=== PATIENT | male | born 1965 | race Caucasian/White ===

== ENCOUNTER 2018-10-03 10:21 | Emergency (ER) | payer BC, MEDICARE, MEDICAID ==
[2018-10-03 10:34] VITALS: BP 141/91
[2018-10-03] MEDS ORDERED: Benzoin COMPOUND swab* 1 applicator pak TOPICAL ONE (11:56)
[2018-10-03] MEDS ORDERED: Benzoin Compound STICK TOPICAL ONE (12:01)
--- NOTE | 2018-10-04 22:48 | UC ---
Laceration HPI - HPI Summary HPI Summary: Note: Document created and completed October 04, 2018 Zhao Mistry MD CHIEF COMPLAINT and HPI: This is a 53 with a laceration to his left index finger that is more than 8 hours old. Patient states that he caught finger between a wagon and a wall. He has a 2.5 cm laceratioin on the volar aspect of his left index finger, proximal digit. It was bleeding until he put a bandaid on it. Pain is described as minimal. He has no complaints of sensation or motor limitation or loss of function. Patient is at [facility] with his mother. NURSES NOTE REVIEWED. VITAL SIGNS REVIEWED. 141/91=BP. On NO antihypertensive medication. VISIT LIST and MEDICAL PROBLEM LIST REVIEWED. CURRENT MEDICATIONS and ALLERGIES REVIEWED. INFORMATION RELEVANT TO CURRENT COMPLAINT: By hx has epilepsy. On Tegretol. Hypertension medication: None. - History Of Current Complaint Chief Complaint: UCLaceration Stated Complaint: LT FINGER LAC Time Seen by Provider: 10/03/18 10:44 Pain Intensity: 1 Pain Scale Used: Adult Non Verbal - Allergies/Home Medications Allergies/Adverse Reactions: Allergies Allergy/AdvReac Type Severity Reaction Status Date / Time No Known Allergies Allergy Verified 10/03/18 10:34 Home Medications: Home Medications carBAMazepine CHEW TAB(*) [Tegretol CHEW TAB(*)] 400 mg PO BID 10/03/18 [ History Confirmed 10/03/18] PMH/Surg Hx/FS Hx/Imm Hx Previously Healthy: Yes Neurological History: Seizures - Surgical History Surgical History: None - Family History Known Family History: Positive: None - Social History Occupation: Employed Full-time - long employment with [employer] Alcohol Use: None Substance Use Type: None Smoking Status (MU): Never Smoked Tobacco Have You Smoked in the Last Year: No Review of Systems All Other Systems Reviewed And Are Negative: Yes Constitutional: Positive: Negative. Negative: Fever Respiratory: Positive: Negative. Negative: Shortness Of Breath Cardiovascular: Positive: Negative. Negative: Palpitations Gastrointestinal: Positive: Negative Motor: Positive: Negative. Negative: Decreased ROM, Weakness Neurovascular: Positive: Negative. Negative: Decreased Sensation Is Patient Immunocompromised?: No Physical Exam Triage Information Reviewed: Yes Appearance: Well-Appearing Vital Signs: Initial Vital Signs Temp 98 F 10/03/18 10:31 Pulse 69 10/03/18 10:31 Resp 18 10/03/18 10:31 BP 141/91 10/03/18 10:31 Pulse Ox 100 10/03/18 10:31 Vital Signs Reviewed: Yes Eye Exam: Normal ENT Exam: Normal Dental Exam: Normal Neck exam: Normal Neck: Positive: 1 Respiratory Exam: Normal Cardiovascular Exam: Normal Abdominal Exam: Normal Musculoskeletal Exam: Normal Musculoskeletal: Positive: Strength Intact, ROM Intact, No Edema, Other: - laceration proximal digit of left index, volar; 2.5 cm. Negative: ROM Limited @ , Edema @ Neurological Exam: Normal Psychological Exam: Normal Skin Exam: Normal Procedures - Laceration/Wound Repair 1 Location: Other - left index finger, proximal digit volar aspect; 2.5 cm laceration; well approximated Description: Linear Betadine Prep?: Yes Laceration/Wound Explored: clean Closure: SteriStrips - choice not to close with sutures because of time of original injury; CMS intact; good hemostasis and approximation post procedure Layer Closure?: No Sterile Dressing Applied?: No Laceration Course/Dx - Course/Dx Course Of Treatment: This is a 53 with a laceration to his left index finger that is more than 8 hours old. Patient states that he caught finger between a wagon and a wall. He has a 2.5 cm laceratioin on the volar aspect of his left index finger, proximal digit. It was bleeding until he put a bandaid on it. Pain is described as minimal. He has no complaints of sensation or motor limitation or loss of function. Patient is at [facility] with his mother. x ray: negative for fx or foreign body; read by radiologist. Procedure: wound cleaned, benzoin and steri strips; good approximation and hemostasis; procedure by MD; dressing applied with splint by nurse. Patient will follow up with PMD. MEDICATIONS REVIEWED. HYPERTENSION STATUS AND RECOMMENDATION FOR FOLLOWUP REVIEWED WITH PATIENT. - Differential Dx - Laceration/Wound Differental Diagnoses: Abrasion, Cellulitis, Laceration, Tenosynovitis - Diagnosis Provider Diagnosis: Finger laceration Discharge - Sign-Out/Discharge Documenting (check all that apply): Patient Departure All imaging exams completed and their final reports reviewed: Yes - Discharge Plan Condition: Stable Disposition: HOME Patient Education Materials: Laceration Without Closure (ED) Referrals: No Primary Care Phys,NOPCP [Primary Care Provider] - Additional Instructions: WE DISCUSSED: PLEASE SEEK CARE AT THE EMERGENCY DEPARTMENT IF SYMPTOMS WORSEN OR IF NEW SYMPTOMS DEVELOP. FOLLOW UP WITH YOUR PRIMARY CARE PHYSICIAN IF CONDITION CONTINUES BEYOND 3 DAYS WITHOUT IMPROVEMENT. We are open from 7 a.m. to 10 p.m. Call us with any questions or concerns. YOUR DIAGNOSIS IS: LACERATION MORE THAN 12 HOURS OLD TO THE LEFT INDEX FINGER. YOUR PRESCRIPTION RECOMMENDATION IS: NONE. OTHER INSTRUCTIONS: YOUR WOUND HAS BEEN CLOSED WITH STERI-STRIPS. Use a splint to protect it when your work. This should heal up over the next 10-14 days. If there is any sign of infection. Make sure to call us or return here or to her doctor for recheck. This means if it gets red, hot, swollen, warm or tender. Use splint for at least the next week. If steri strips fall off, use a band aid to bring wound edges together. Hypertension Discharge Instructions: Your blood pressure reading today was 141/91, indicating HYPERTENSION. Follow- up with your primary care provider within 4 weeks for blood pressure check and appropriate recommendations and treatment, as needed. For pain: Ibuprofen (Motrin and other brand names) 400-600mg PLUS acetaminophen (Tylenol and other brand names) 500mg - 1000mg every 8 hours. Maximum is 3 doses a day. If this dosage is required for more than 5 days, you should re-check with your doctor. The combination of these two over-the- counter medications can be more effective than each one taken alone. Please check with the pharmacist if you have questions about your allergies to these medications. - Billing Disposition and Condition Condition: STABLE Disposition: Home
== END 2018-10-03 12:25 | disposition home or self-care (01) ==
LOC: UCEAST 10:21
DX: S61.211A Laceration without foreign body of left index finger without damage to nail, initial encounter (principal); W23.0XXA Caught, crushed, jammed, or pinched between moving objects, initial encounter; Y92.9 Unspecified place or not applicable; G40.909 Epilepsy, unspecified, not intractable, without status epilepticus
CPT/HCPCS: 12001; 99212; 99213; G0463

== ENCOUNTER 2019-07-28 10:53 | Emergency (ER) | payer BC, MEDICARE, MEDICAID ==
--- NOTE | 2019-07-28 11:17 | ED ---
Syncope/Near Syncope - HPI Summary HPI Summary: The patient is a 54 y/o M presenting to [facility] accompanied by sister with a cc of syncopal event this morning. He reports that he was [place] his mother who is admitted in the hospital, when he saw blood from the dialysis cath his mother was on and suddenly felt lightheaded, causing LOC with syncope. He states that he has a history of fainting when seeing blood, so this is a typical event for him. His sister notes that because of this condition, she is aware of the signs and immediately knew to protect the patients head when she noticed him about to faint. The patient still hit his head on the ground in the left occipital area. He denies any neck pain, but he was placed in a C-collar while upstairs once the Clinical Assessment Team was called. He is feeling much better in the ED now, but symptoms were rated 10/10 in severity initially. PMHx : hydrocephalus, seizures with Carbamazepine. Nonsmoker, no EtOH, no substance use. Medications reviewed. Allergies noted. - History Of Current Complaint Chief Complaint: EDHeadInjury Time Seen by Provider: 07/28/19 11:02 Hx Obtained From: Patient Onset/Duration: Sudden Onset, Lasting Minutes, Resolved Timing: Minutes Context: Witnessed, Loss Of Consciousness Activity At Onset: Other - walking Associated Head Trauma: Yes Aggravating Factor(s): Other - seeing blood Alleviating Factor(s): Spontaneous Resolution Associated Signs And Symptoms: Head Trauma (Recent) - left occipital, Lightheadedness - Allergies/Home Medications Allergies/Adverse Reactions: Allergies Allergy/AdvReac Type Severity Reaction Status Date / Time No Known Allergies Allergy Verified 07/28/19 10:58 Home Medications: Home Medications Multivitamins/Minerals TAB* [Theragran/minerals TAB*] 1 tab PO DAILY 07/28/19 [ History Confirmed 07/28/19] PMH/Surg Hx/FS Hx/Imm Hx Endocrine/Hematology History: Denies: Hx Diabetes Cardiovascular History: Denies: Hx Hypertension Sensory History: Reports: Hx Contacts or Glasses Opthamlomology History: Reports: Hx Contacts or Glasses Neurological History: Reports: Hx Seizures, Other Neuro Impairments/Disorders - hydrocephalus - Surgical History Surgical History: None Surgery Procedure, Year, and Place: none Infectious Disease History: No Infectious Disease History: Denies: Traveled Outside the [place] in Last 30 Days - Family History Known Family History: Positive: Renal Disease - Social History Alcohol Use: None Hx Substance Use: No Substance Use Type: Reports: None Hx Tobacco Use: No Smoking Status (MU): Never Smoked Tobacco Have You Smoked in the Last Year: No Review of Systems Negative: Myalgia - neck Neurological/Mental Status: Other - lightheaded, head injury to left occipital Positive: Syncope - with LOC All Other Systems Reviewed And Are Negative: Yes Physical Exam - Summary Physical Exam Summary: Constitutional: Well-developed, Well-nourished, Alert. (-) Distressed Skin: Warm, Dry HENT: Normocephalic; Atraumatic Eyes: Conjunctiva normal Neck: Musculoskeletal ROM normal neck. (-) C-spine tenderness, C-Collar removed , (-) JVD, (-) Stridor, (-) Nuchal rigidity Cardio: Rhythm regular, rate normal, Heart sounds normal; Intact distal pulses; Radial pulses are 2+ and symmetric. (-) Murmur Pulmonary/Chest wall: Effort normal. (-) Respiratory distress, (-) Wheezes, (-) Rales Abd: Soft, (-) tenderness, (-) Distension, (-) Guarding, (-) Rebound Musculoskeletal: (-) Edema Lymph: (-) Cervical adenopathy Neuro: Alert, Oriented x3 Psych: Mood and affect Normal GCS: 15 Triage Information Reviewed: Yes Vital Signs On Initial Exam: Initial Vitals Temp Pulse Resp BP Pulse Ox 98.5 F 60 16 145/99 97 07/28/19 10:54 07/28/19 10:54 07/28/19 10:54 07/28/19 10:54 07/28/19 10:54 Vital Signs Reviewed: Yes - Alisa Coma Scale Best Eye Response: 4 - Spontaneous Best Motor Response: 6 - Obeys Commands Best Verbal Response: 5 - Oriented Coma Scale Total: 15 Procedures - Sedation Patient Received Moderate/Deep Sedation with Procedure: No Diagnostics - Vital Signs Vital Signs Temp Pulse Resp BP Pulse Ox 07/28/19 10:54 98.5 F 60 16 145/99 97 - Laboratory Result Diagrams: 07/28/19 11:26 07/28/19 11:26 Lab Statement: Any lab studies that have been ordered have been reviewed, and results considered in the medical decision making process. - CT Brain CT CT Interpretation Completed By: Radiologist Summary of CT Findings: Impression: 1. Hydrocephalus of unknown chronicity. 2. No acute intracranial hemorrhage. ED physician has reviewed this report. - EKG 1135 Cardiac Rate: NL - 63 BPM EKG Rhythm: Sinus Rhythm EKG Comparison: Other - no prior for comparison Summary of EKG Findings: An EKG at 1135 reveals normal sinus rhythm at rate of 63 BPM. T wave inversions in V1, V2, and aVL. No STEMI. No prior for comparison. ED physician has reviewed and interpreted this EKG. Re-Evaluation - Re-Evaluation First Eval Re-Evaluation Time: 12:20 Change: Improved Comment: Patient feeling well. He is safe for d/c. Results discussed. Course/Dx Course Of Treatment: 54 y/o male p/w syncopal episode. Syncope. DDx: most likely vasovagal as patient reports that he often feels light headed when seeing blood. Head CT negative for acute abnormality. Shows hydrocephalus ( chronic). Seizure: no witnessed seizure activity, incontinence or h/o seizures to suggest seizure today. Hypoxia and hypoglycemia less likely in this patient with normal sats and BG. Cardiac issue: electrical (dysarrhythmias, brugada, WPW, long QT). Less likely given no evidence of drop attack, no palpitations, no EKG findings to predispose to arrhythmias. No CP. Vessels: PE, dissection, AAA. Clinical picture inconsistent, no abd pain, no pulsatile mass, symmetric pulses, no risk factors of PE. Volume issue: dehydration from vomiting/diarrhea /decreased PO, sepsis, GI bleed, ruptured ectopic or bleeding AAA. No signs of recent illness to suggest infection, no e/o anemia by history or PE. Neuro: No [place], no personal or family h/o cerebral aneurysm, nml neuro exam, so this is unlikely ICH or sentinel bleed. Also: drugs/meds, autonomic insufficiency - Diagnoses Provider Diagnoses: Syncope Discharge ED - Sign-Out/Discharge Documenting (check all that apply): Patient Departure - Patient will be discharged home. - Discharge Plan Condition: Stable Disposition: HOME Patient Education Materials: Syncope (ED) Referrals: [facility] [Outside] - 3 Days Additional Instructions: You were seen in the emergency department for passing out. Your head CT did not show any acute abnormalities. Please follow up with your primary care doctor in next 2-3 days and return to emergency department for severe headaches, passing out, chest pain,worsening or concerning symptoms. It was a pleasure taking care of you today. - Billing Disposition and Condition Condition: STABLE Disposition: Home - Attestation Statements Document Initiated by Krys: Yes Documenting Scribe: Alberta Mcghee Provider For Whom Krys is Documenting (Include Credential): Dr. Sanjuanita Walters MD Scribe Attestation: I, Alberta Mcghee, scribed for Dr. Sanjuanita Walters MD on 07/28/19 at 1917. Scribe Documentation Reviewed: Yes Provider Attestation: The documentation as recorded by the Alberta pan accurately reflects the service I personally performed and the decisions made by me, Dr. Sanjuanita Walters MD Status of Scribzack Document: Viewed
[2019-07-28 11:35] LABS: ABS Eosinophils 0.1 10^3/ul (0-0.6); ABS Lymphocytes 0.9 10^3/ul (1.0-4.8); ABS Monocytes 0.5 10^3/ul (0-0.8); ABS Neutrophils 4.2 10^3/ul (1.5-7.7); Hematocrit 43 % (42-52); Hemoglobin 15.1 g/dL (14.0-18.0); Lymphocyte % 15.1 %; Mean Corpuscular HGB Conc 35 g/dL (31-36); Mean Corpuscular Hemoglobin 33 pg (27-31); Mean Corpuscular Volume 94 fL (80-94); Mean Platelet Volume 8.7 fL (7.4-10.4); Platelet Count 196 10^3/uL (150-450); Red Blood Count 4.53 10^6 /uL (4.18-5.48); Red Cell Distribution Width 13 % (10-15); White Blood Count 5.7 10^3/uL (3.5-10.8)
[2019-07-28 11:54] LABS: Albumin 4.3 g/dL (3.2-5.2); Albumin/Globulin Ratio 1.8 (1-3); Calcium 9.1 mg/dL (8.6-10.3); EGFR African American 94.6 (>60); EGFR Non-African American 78.2 (>60); Globulin 2.4 g/dL (2-4); Potassium 4.3 mmol/L (3.5-5.0); Total Bilirubin 0.5 mg/dL (0.2-1.0); Total Protein 6.7 g/dL (6.4-8.9)
[2019-07-28 12:32] VITALS: BP 155/95
== END 2019-07-28 12:33 | disposition home or self-care (01) ==
LOC: ED 10:53
DX: R55 Syncope and collapse (principal); G91.9 Hydrocephalus, unspecified
CPT/HCPCS: 36415; 70450; 80053; 84484; 85025; 93005; 99282